=== PATIENT | male | born 1995 | race Two or more races ===

== ENCOUNTER 2024-07-22 20:05 | Emergency (ER) | payer MEDICAID, SELFPAY ==
[2024-07-22 20:16] VITALS: BP 145/89; PULSE 100; RESP 18; TEMP 36.8; O2SAT 95
--- NOTE | 2024-07-22 21:20 | EDNOTE_ITS ---
<Statement entered by Claudia Waddell MD - 07/23/24 19:21> As co-signing physician, I was present and available for consult prn. I concur with the plan and care as documented by the midlevel provider. Upper Respiratory Inf. RME/HPI General Chief Complaint: Flu Like Symptoms Stated Complaint: Headache/Cough Time Seen by Provider: 07/22/24 20:22 Arrival date/time: 07/22/24 20:05 29M with history of developmental disorder presents to ED with mom for 2 days of cough and RENDON. Limitations: no limitations Related Data Previous Rx's ?Medication ?Instructions ?Recorded acetaminophen 500 mg tablet 500 mg PO QID PRN fever or pain 10/19/20 (Tylenol Extra Strength) #30 tabs azithromycin 250 mg tablet See Rx Instructions PO .COMPLEX #6 10/19/20 tabs ondansetron HCl 4 mg tablet 4 mg PO Q6H #10 tabs 10/19/20 (Zofran) dextromethorphan-guaifenesin 5 15 ml PO Q8H PRN cough #355 mL 09/21/22 mg-100 mg/5 mL oral liquid (Robitussin Cough-Chest Congestion DM) Allergies Allergy/AdvReac Type Severity Reaction Status Date / Time ibuprofen Allergy Unknown Verified 09/21/22 19:41 Review of Systems Review of Systems Systems Reviewed: All systems reviewed, normal except as documented Constitutional Constitutional: Reports system reviewed and no additional complaints, except as documented, Reports as per HPI, Denies fever(s) and Reports headache(s) ENT Ears, Nose, Mouth, and Throat: Denies disequilibrium and Reports headache(s) Cardiovascular Cardiovascular: Reports system reviewed and no additional complaints, except as documented, Denies chest pain and Denies dyspnea Respiratory Respiratory: Reports system reviewed and no additional complaints, except as documented, Reports as per HPI, Reports cough and Denies dyspnea Gastrointestinal Gastrointestinal: Reports system reviewed and no additional complaints, except as documented, Denies abdominal pain, Denies nausea and Denies vomiting Neurologic Neurologic: Reports system reviewed and no additional complaints, except as documented, Denies confusion, Denies disequilibrium and Reports headache(s) Psychiatric Psychiatric: Denies confusion Past Medical History Past Medical History NEUROLOGIC: Positive Neurological Disorders (developmentally delayed) CARDIAC: Negative Cardiac Disorders or Congestive Heart Failure RESPIRATORY: Positive Pneumonia; Negative Chronic Obstructive Pulmonary Disease (COPD) GASTROINTESTINAL: Negative Gastrointestinal Disorders GENITOURINARY: Negative Genitourinary Disorders or Renal Disease MUSCULOSKELETAL: Negative Musculoskeletal Disorders ENDOCRINE: Negative Endocrine Disorders, Diabetes Mellitus Type 1 or Diabetes Mellitus Type 2 HEMATOLOGIC: Negative Blood Disorders Social History SMOKING STATUS: Never smoker ED Exam General Limitations: Present no limitations General appearance: Present alert and in no apparent distress Head Head exam: Present atraumatic Eye Eye exam: Present normal appearance, PERRL and EOMI ENT ENT exam: Present normal exam, normal oropharynx and mucous membranes moist Neck Neck exam: Present normal inspection, full ROM and trachea midline Chest Chest inspection: Present normal inspection and symmetric chest wall rise Respiratory Respiratory exam: Present normal lung sounds bilaterally Cardiovascular Cardiovascular exam: Present regular rate, normal rhythm and normal heart sounds Abdominal Exam Abdominal exam: Present soft and normal bowel sounds Extremities Exam Extremities exam: Present normal inspection and full ROM Back Exam Back exam: Present normal inspection and full ROM Neurological Exam Neurological exam: Present alert, oriented X3 and CN II-XII intact Psychiatric Psychiatric exam: Present normal affect and normal mood Skin Skin exam: Present warm, dry, intact and normal color Course Quality Measures none Orders Category Date Time Status Bedside Influenza A&B Antigen Test NOW Care 07/22/24 20:15 Completed Vital Signs Vital signs: Vital Signs Temperature 98.2 F 07/22/24 20:16 Pulse Rate 100 07/22/24 20:16 Respiratory Rate 18 07/22/24 20:16 Blood Pressure 145/89 H 07/22/24 20:16 Pulse Oximetry (%) 95 07/22/24 20:16 Oxygen Delivery Method Room Air 07/22/24 20:16 O2 at 95% on RA and WNLs Upper Respiratory Infection MDM Narrative MDM Narrative:: 29M with history of developmental disorder presents to ED with mom for 2 days of cough and RENDON. Physical exam reveals normal pupil response and EOM. ENT and lungs clear. Patient is afebrile, calm, and alert. Flu A+. Patient data External records reviewed:: [facility] [place] previous records Clinical information provided by:: patient Social determinants that could affect healthcare access:: mental health Patient has the following chronic illnesses:: developmental disorder How is presenting disease/condition affected by chronic disease/condition?: uneffected by Evaluation data The following diagnostics were reviewed and interpreted by me:: lab results Lab and/or radiology exams considered but not ordered:: ordered Interpretation Summary: above Medications / Prescriptions Medications or Prescriptions considered but not ordered:: not ordered Medication administrations:: n/a Consultations Consultation(s) initiated? (list below): No Diagnosis Upper Respiratory Differential Diagnosis: upper respiratory infection, croup, otitis media, sinusitis, viral infection, bronchitis, influenza and pharyngitis Most likely diagnosis given after review of the tests above:: flu A Admission Indicated Admission indicated?: not indicated Admission Request Was there a request for admission?: No Disposition Plan Disposition Plan: Discharge Discharge Attestation Discharge Attestation: The patient and all family members were given an opportunity to ask questions and understood the discharge instructions. Discharge instructions specifically effects, indications for sooner follow up or return to the emergency department, and the expected course of current diagnosis. Patient condition: Stable Discharge Plan Plan Patient Disposition: HOME (Self Care) Disposition Comment: Stable Prescriptions/Referrals Prescriptions/Med Rec: No Action azithromycin 250 mg tablet See Rx Instructions .ROUTE .COMPLEX Qty: 6 0RF Rx Instructions: take 500 mg today (day 1), then 250 mg for 4 days (days 2-5) acetaminophen [Tylenol Extra Strength] 500 mg tablet 500 mg PO QID PRN (Reason: fever or pain) Qty: 30 0RF ondansetron HCl [Zofran] 4 mg tablet 4 mg PO Q6H Qty: 10 0RF Robitussin Cough-Chest Oliver DM 5-100 mg/5 mL liquid 15 ml PO Q8H PRN (Reason: cough) Qty: 355 0RF Problem List Clinical Impression: Influenza A Patient/Caregiver Discharge Instructions Education Materials: ED Influenza (Adult) Additional Instructions: Please follow-up with PCP within 24-48 hours and return immediately if symptoms worsen. Ibuprofen/Tylenol can be used simultaneously for greater fever/pain control. FYI, Tylenol comes in a suppository form. Benadryl is good for cough, congestion, and sleep. Print Language: Dutch Stand Alone Forms: Patient Portal Info Letter PA/SNAG GRINDER Supervising Physician PA/DEB Supervising Physician: Dr. Waddell
== END 2024-07-22 20:48 | disposition home or self-care (01) ==
LOC: SERX 20:37
PROVIDERS: Emergency Provider Emergency Medicine; PCP Physician Assistant
DX: J10.1 Influenza due to other identified influenza virus with other respiratory manifestations (principal)
CPT/HCPCS: 87400; 99283